=== PATIENT | male | born 1955 | race Asian ===

== ENCOUNTER 2020-04-08 10:16 | Emergency (ER) | payer OTHER ==
[~2020-04-08] VITALS: Ht 172.7 cm; Wt 71.7 kg
[2020-04-08 10:24] VITALS: Ht 172.7 cm; Wt 71.7 kg
[2020-04-08 11:31] LABS: BASOPHIL % 0.5 % (0-2); PLATELET COUNT 176 x10^3mcL (130-400); RED CELL DISTRIBUTION WIDTH 13.3 % (11.5-14.5)
[2020-04-08 11:37] LABS: CALCIUM 8.8 mg/dL (8.5-10.1); CARBON DIOXIDE 27.7 mmol/L (21-32); CHLORIDE SERUM 102 mmol/L (98-107); CREATININE SERUM 1.2 mg/dL (0.7-1.3); GFR1 > 60 mL/min; GLUCOSE SERUM 144 mg/dL (74-106); POTASSIUM SERUM 3.8 mmol/L (3.5-5.1); SODIUM SERUM 138 mmol/L (136-145)
[2020-04-08 11:42] LABS: ALKALINE PHOSPHATASE 81 U/L (46-116); ALT/SGPT 122 U/L (16-63); AST/SGOT 74 U/L (15-37); BILIRUBIN TOTAL 1.27 mg/dL (0.20-1.00)
[2020-04-08 11:47] LABS: TOTAL PROTEIN, SERUM 8.3 g/dL (6.4-8.2)
[2020-04-08 13:27] VITALS: BP 162/73
== END 2020-04-08 13:49 | disposition home or self-care (01) ==
LOC: ED 10:16
PROVIDERS: Emergency Medicine
DX: R42 Dizziness and giddiness (principal); M54.2 Cervicalgia; R53.1 Weakness; R11.2 Nausea with vomiting, unspecified; E78.00 Pure hypercholesterolemia, unspecified; I10 Essential (primary) hypertension; Z88.2 Allergy status to sulfonamides; Z90.49 Acquired absence of other specified parts of digestive tract
CPT/HCPCS: J0780; J7030